=== PATIENT | female | born 1985 | race Caucasian/White ===

== ENCOUNTER → 2018-02-03 | Outpatient (CLI) | payer BC ==
[~2018-02-03] MED LIST: AMOX500C2 PO; CLC500CT PO; DCS100C PO; FRS325T PO; HYDR-3714 PO; IBUP-1773 PO; LRT10T PO; MAGN100T3 PO; MTP25TSR PO; POM PO; POTA99TA15 PO; PREN1TAB39 PO; VITA1CAP59 PO
[2018-02-03 12:28] LABS: ABSOLUTE RETIC # 46 10e9/L (24-90); BASOPHILS % (AUTO) 0 % (0-10); EOSINOPHILS # (AUTO) 0.2 10^3/uL (0.0-0.3); EOSINOPHILS % (AUTO) 2 % (0-10); HEMATOCRIT 40 % (35-52); HEMOGLOBIN 13.3 G/DL (11.5-16.0); LYMPHOCYTES # (AUTO) 2.6 X 10^3 (1.0-4.0); LYMPHOCYTES % (AUTO) 24 % (12-44); MEAN CORPUSCULAR HEMOGLOBIN 28 PG (25-34); MEAN CORPUSCULAR HGB CONC 33 G/DL (32-36); MEAN CORPUSCULAR VOLUME 85 FL (80-99); MEAN PLATELET VOLUME 9.7 FL (7.4-10.4); MONOCYTES # (AUTO) 0.9 X 10^3 (0.0-1.0); MONOCYTES % (AUTO) 9 % (0-12); NEUTROPHILS # (AUTO) 7.1 X 10^3 (1.8-7.8); NEUTROPHILS % (AUTO) 65 % (42-75); PLATELET COUNT 413 10^3/uL (130-400); RED BLOOD COUNT 4.74 10^6/uL (4.35-5.85); RED CELL DISTRIBUTION WIDTH 13.4 % (10.0-14.5); RETICULOCYTE % 0.97 % (0.50-2.40); WHITE BLOOD COUNT 10.9 10^3/uL (4.3-11.0)
[2018-02-03 13:12] LABS: BAND NEUTROPHILS 0 %; BASOPHILS % (MANUAL) 0 %; EOSINOPHILS % (MANUAL) 4 %; LYMPHOCYTES % (MANUAL) 28 %; MONOCYTES % (MANUAL) 7 %; NEUTROPHILS % (MANUAL) 61 %; RBC MORPH NORMAL
== END ==
LOC: LAB 12:12
PROVIDERS: ATTEND Nurse Practitioner Family
DX: D72.828 Other elevated white blood cell count (principal)
CPT/HCPCS: 36415; 85007; 85027; 85045

== ENCOUNTER → 2018-07-24 | Outpatient (CLI) | payer BC ==
--- NOTE | 2018-07-24 14:52 | Diagnostic Imaging Report ---
PROCEDURE: US Gallbladder. TECHNIQUE: Multiple real-time grayscale images were obtained over the right upper quadrant in various projections. INDICATION: Elevated liver function tests. The liver is upper limits of normal in size 17.5 cm. No discrete liver mass is identified. The main portal vein is patent and shows normal direction of flow. Gallbladder is without stones or sludge. No wall thickening or biliary ductal dilatation is seen. The pancreas and right kidney are unremarkable. There is no ascites. IMPRESSION: Unremarkable gallbladder ultrasound. Dictated by: Dictated on workstation # [id number]
== END ==
LOC: RAD 07:04
PROVIDERS: ATTEND Nurse Practitioner Family
DX: R79.89 Other specified abnormal findings of blood chemistry (principal)
CPT/HCPCS: 76705

== ENCOUNTER 2018-11-28 05:36 | Outpatient (CLI) | payer BC ==
[~2018-11-28] VITALS: Ht 154.9 cm; Wt 85.3 kg
[2018-11-28] MEDS ORDERED: VITA1CAP PO (10:15)
[2018-11-28] MEDS ORDERED: METO-387 PO (10:15)
[2018-11-28] MEDS ORDERED: FAMO-119 PO (10:15)
[2018-11-28] MEDS ORDERED: BUPR100T15 PO (10:15)
[2018-11-28] MEDS ORDERED: MECL-106 PO (10:15)
[2018-11-28] MEDS ORDERED: NORG1TAB33 PO (10:15)
[2018-11-28] MEDS ORDERED: L.AC1CAP6 PO (10:15)
[2018-11-28] MEDS ORDERED: CETI10TA17 PO (10:15)
[2018-11-28] MEDS ORDERED: POTA10TA36 PO (10:15)
[2018-11-28] MEDS ORDERED: MAGN400T50 PO (10:15)
== END 2018-11-28 10:31 | disposition home or self-care (01) ==
LOC: PREOP 05:36
PROVIDERS: ATTEND Obstetrics & Gynecology
DX: Z01.818 Encounter for other preprocedural examination (principal)

== ENCOUNTER 2019-09-26 10:06 | Outpatient (CLI) | payer BC, OTHER ==
[~2019-09-26] VITALS: Ht 154 cm; Wt 89.1 kg
[~2019-09-26 10:06] MED LIST changes: +ACHD5005 PO; +BUPR100T15 PO; +CETI10TA17 PO; +DOCU-143 PO; +FAMO-119 PO; +L.AC1CAP6 PO; +MAGN400T50 PO; +MECL-106 PO; +METO-387 PO; +NORG1TAB33 PO; +POTA10TA36 PO; +VITA1CAP PO
[2019-09-26 10:31] VITALS: BP 125/89
[2019-09-26 11:00] LABS: BASOPHILS % (AUTO) 0 % (0-10); EOSINOPHILS # (AUTO) 0.1 10^3/uL (0.0-0.3); EOSINOPHILS % (AUTO) 2 % (0-10); HEMATOCRIT 38 % (35-52); HEMOGLOBIN 12.2 G/DL (11.5-16.0); LYMPHOCYTES # (AUTO) 1.5 X 10^3 (1.0-4.0); LYMPHOCYTES % (AUTO) 21 % (12-44); MEAN CORPUSCULAR HEMOGLOBIN 26 PG (25-34); MEAN CORPUSCULAR HGB CONC 33 G/DL (32-36); MEAN CORPUSCULAR VOLUME 81 FL (80-99); MEAN PLATELET VOLUME 9.4 FL (7.4-10.4); MONOCYTES % (AUTO) 13 % (0-12); NEUTROPHILS # (AUTO) 4.6 X 10^3 (1.8-7.8); NEUTROPHILS % (AUTO) 64 % (42-75); PLATELET COUNT 338 10^3/uL (130-400); RED CELL DISTRIBUTION WIDTH 13.3 % (10.0-14.5); WHITE BLOOD COUNT 7.2 10^3/uL (4.3-11.0)
== END 2019-09-26 14:52 | disposition home or self-care (01) ==
LOC: PREOP 10:06
PROVIDERS: ATTEND Obstetrics & Gynecology
DX: Z01.818 Encounter for other preprocedural examination (principal); Z01.812 Encounter for preprocedural laboratory examination; N80.9 Endometriosis, unspecified
CPT/HCPCS: 36415; 85025; 86850; 86900; 86901; 87081

== ENCOUNTER → 2020-12-04 | Outpatient (CLI) | payer BC, OTHER ==
[~2020-12-04] MED LIST changes: +DOCU100C37 PO; +HYDR-34 PO; +IBUP-844 PO; -MECL-106 PO; +MECL-149 PO; -METO-387 PO; +SIME80TA16 PO
--- NOTE | 2020-12-04 09:40 | Diagnostic Imaging Report ---
PROCEDURE: Pelvic comp/transvaginal sonogram. TECHNIQUE: Complete transabdominal and transvaginal pelvic ultrasound was performed. In addition, limited pelvic Doppler was performed. INDICATION: Pelvic pain. Patient status post hysterectomy 13 months ago. The uterus is surgically absent. Vaginal cuff is unremarkable. The ovaries cannot be visualized. Adnexa are unremarkable. No adnexal mass or free fluid is seen. Iliacs are unremarkable. Bladder is unremarkable. There is no free fluid. IMPRESSION: Status post hysterectomy. No adnexal mass or free fluid is detected. Dictated by: Dictated on workstation # [id number]
== END ==
LOC: RAD 08:00
PROVIDERS: ATTEND Obstetrics & Gynecology
DX: R10.2 Pelvic and perineal pain (principal); Z90.710 Acquired absence of both cervix and uterus
CPT/HCPCS: 76830; 76856

== ENCOUNTER → 2021-05-19 | Outpatient (CLI) | payer BC, OTHER ==
[2021-05-19 13:25] LABS: ABSOLUTE RETIC # 51 10e9/uL (24-90); BASOPHILS % (AUTO) 0 % (0-10); EOSINOPHILS # (AUTO) 0.3 10^3/uL (0.0-0.3); EOSINOPHILS % (AUTO) 3 % (0-10); HEMATOCRIT 40 % (35-52); HEMOGLOBIN 12.9 g/dL (11.5-16.0); LYMPHOCYTES # (AUTO) 3.1 10^3/uL (1.0-4.0); LYMPHOCYTES % (AUTO) 31 % (12-44); MEAN CORPUSCULAR HEMOGLOBIN 27 pg (25-34); MEAN CORPUSCULAR HGB CONC 32 g/dL (32-36); MEAN CORPUSCULAR VOLUME 83 fL (80-99); MEAN PLATELET VOLUME 9.5 fL (9.0-12.2); MONOCYTES # (AUTO) 0.8 10^3/uL (0.0-1.0); MONOCYTES % (AUTO) 8 % (0-12); NEUTROPHILS # (AUTO) 5.7 10^3/uL (1.8-7.8); NEUTROPHILS % (AUTO) 58 % (42-75); PLATELET COUNT 425 10^3/uL (130-400); RETICULOCYTE % 1.06 % (0.50-2.40); WHITE BLOOD COUNT 9.9 10^3/uL (4.3-11.0)
[2021-05-19 13:55] LABS: RBC MORPH NORMAL
[2021-05-19 13:56] LABS: BASOPHILS % (MANUAL) 1 %; EOSINOPHILS % (MANUAL) 6 %; LYMPHOCYTES % (MANUAL) 27 %; MONOCYTES % (MANUAL) 5 %; NEUTROPHILS % (MANUAL) 61 %
== END ==
LOC: LAB 12:27
PROVIDERS: ATTEND Family Medicine
DX: D72.829 Elevated white blood cell count, unspecified (principal)
CPT/HCPCS: 36415; 85007; 85027; 85045; 85055

== ENCOUNTER → 2021-07-02 | Outpatient (CLI) | payer BC, OTHER ==
[2021-07-02 13:24] LABS: BASOPHILS % (AUTO) 0 % (0-10); EOSINOPHILS # (AUTO) 0.3 10^3/uL (0.0-0.3); EOSINOPHILS % (AUTO) 2 % (0-10); HEMATOCRIT 39 % (35-52); HEMOGLOBIN 12.7 g/dL (11.5-16.0); LYMPHOCYTES # (AUTO) 3.6 10^3/uL (1.0-4.0); LYMPHOCYTES % (AUTO) 31 % (12-44); MEAN CORPUSCULAR HEMOGLOBIN 27 pg (25-34); MEAN CORPUSCULAR HGB CONC 32 g/dL (32-36); MEAN CORPUSCULAR VOLUME 84 fL (80-99); MEAN PLATELET VOLUME 9.5 fL (9.0-12.2); MONOCYTES # (AUTO) 0.9 10^3/uL (0.0-1.0); MONOCYTES % (AUTO) 8 % (0-12); NEUTROPHILS # (AUTO) 6.5 10^3/uL (1.8-7.8); NEUTROPHILS % (AUTO) 58 % (42-75); PLATELET COUNT 410 10^3/uL (130-400); WHITE BLOOD COUNT 11.3 10^3/uL (4.3-11.0)
== END ==
LOC: LAB 13:07
PROVIDERS: ATTEND Nurse Practitioner Family
DX: D64.9 Anemia, unspecified (principal); D72.829 Elevated white blood cell count, unspecified
CPT/HCPCS: 36415; 85025

== ENCOUNTER → 2021-07-07 | Outpatient (CLI) | payer BC, OTHER | LOC: LAB 13:22 | PROVIDERS: ATTEND Nurse Practitioner Family | DX: D47.3 Essential (hemorrhagic) thrombocythemia (principal) | CPT/HCPCS: 36415; 81270 ==

== ENCOUNTER 2021-07-14 10:14 | Outpatient (RCR) | payer BC, OTHER ==
[~2021-07-14 10:14] MED LIST changes: -POTA10TA36 PO; +POTA10TA37 PO
[2021-07-14 10:37] LABS: ABSOLUTE RETIC # 60 10e9/uL (24-90); BASOPHILS # (AUTO) 0.1 10^3/uL (0.0-0.1); BASOPHILS % (AUTO) 1 % (0-10); EOSINOPHILS # (AUTO) 0.2 10^3/uL (0.0-0.3); EOSINOPHILS % (AUTO) 3 % (0-10); HEMATOCRIT 40 % (35-52); HEMOGLOBIN 12.8 g/dL (11.5-16.0); LYMPHOCYTES # (AUTO) 2.5 10^3/uL (1.0-4.0); LYMPHOCYTES % (AUTO) 30 % (12-44); MEAN CORPUSCULAR HEMOGLOBIN 27 pg (25-34); MEAN CORPUSCULAR HGB CONC 32 g/dL (32-36); MEAN CORPUSCULAR VOLUME 85 fL (80-99); MEAN PLATELET VOLUME 9.5 fL (9.0-12.2); MONOCYTES # (AUTO) 0.6 10^3/uL (0.0-1.0); MONOCYTES % (AUTO) 7 % (0-12); NEUTROPHILS # (AUTO) 5.1 10^3/uL (1.8-7.8); NEUTROPHILS % (AUTO) 59 % (42-75); PLATELET COUNT 398 10^3/uL (130-400); RETICULOCYTE % 1.28 % (0.50-2.40); WHITE BLOOD COUNT 8.5 10^3/uL (4.3-11.0)
[2021-07-14 11:06] LABS: ALBUMIN 4.2 GM/DL (3.2-4.5); BILIRUBIN,TOTAL 0.3 MG/DL (0.1-1.0); CALCIUM 9.6 MG/DL (8.5-10.1); CREATININE SERUM 0.72 MG/DL (0.60-1.30); POTASSIUM 3.8 MMOL/L (3.6-5.0); TOTAL PROTEIN 7.8 GM/DL (6.4-8.2)
== END 2021-10-12 | disposition home or self-care (01) ==
LOC: ONC 10:14
PROVIDERS: ATTEND Internal Medicine Hematology & Oncology
DX: D47.3 Essential (hemorrhagic) thrombocythemia (principal); D72.829 Elevated white blood cell count, unspecified; K21.9 Gastro-esophageal reflux disease without esophagitis
CPT/HCPCS: 80053; 83615; 85025; 85045; G0463; 99214